=== PATIENT | female | born 1980 | race Caucasian/White ===

== ENCOUNTER 2016-07-28 21:06 | Emergency (ER) | payer MEDICAID ==
[2016-07-28] MEDS ORDERED: ONDANSETRON 4 MG/2 ML VIAL ONE (21:30)
[2016-07-28] MEDS ORDERED: KETOROLAC 30 MG/1 ML SDV ONE (21:30)
[2016-07-28] MEDS ORDERED: ONDANSETRON 4 MG/2 ML VIAL IVP ONE ×2 (21:31→22:32)
[2016-07-28] MEDS ORDERED: FAMOTIDINE 20 MG in NS 100 ML IV ONE (21:31)
[2016-07-28] MEDS ORDERED: MAALOX/LIDO/HYOSC GI COCKTAIL 55 ML BOTTLE PO ONE (21:31)
[2016-07-28] MEDS ORDERED: KETOROLAC 30 MG/1 ML SDV IVP ONE (21:31)
[2016-07-28] MEDS ORDERED: NS 1,000 ML IV ONE ×2 (21:31→23:14)
--- NOTE | 2016-07-28 21:31 | UCPHY ---
H & P Time Seen by Provider: 07/28/16 21:20 Patient Type: Established HPI/ROS: CHIEF COMPLAINT: abdominal pain HISTORY OF PRESENT ILLNESS: Patient is a 35-year-old female (possible history of Crohn's disease) who presents to the with severe and sudden onset of epigastric/right upper quadrant abdominal pain. Patient was at an AA meeting and had a slightly upset stomach. She went to the bathroom and had an episode of nonbloody diarrhea. She then became nauseated. She had sudden onset of epigastric/RUQ pain. Pain does not radiate. It is severe. She has had nausea and nonbloody emesis. She denies fevers or chills. No dysuria or frequency. Patient denies flank pain. The patient ate yogurt at 11:00 a.m.. REVIEW OF SYSTEMS: My complete review of systems is negative except as mentioned in the HPI. Past Medical/Surgical History: Includes possible Crohn's disease, depression Past surgical history: Breast augmentation Social history: The patient denies drinking or drugs. She is in a treatment program. Smoking Status: Current every day smoker Physical Exam: Vitals noted. 142/76, 118, 20, 98%, 36.6 GENERAL: my acute distress, alert. HEENT: Eyes normal to inspection, normal pharynx, no signs of dehydration. NECK: No thyromegaly, no lymphadenopathy, supple. RESPIRATORY: Clear to auscultation bilaterally, no rales, rhonchi or wheezing. CVS: regular rhythm tachycardia, no rubs, murmurs, or gallops. ABDOMEN: Soft, epigastric and right upper quadrant tenderness palpation with no rebound or guarding, nondistended, no organomegaly. BACK: Normal to inspection, no CVA tenderness. SKIN: Normal color, no rash, warm, dry. No pallor. EXTREMITIES: No pedal edema, no calf tenderness, no joint swelling. NEURO/PSYCH: Alert and oriented, normal mood and affect. Constitutional: Initial Vital Signs Temperature (C) 36.6 C 07/28/16 21:10 Heart Rate 118 H 07/28/16 21:10 Respiratory Rate 20 07/28/16 21:10 Blood Pressure 142/76 H 07/28/16 21:10 O2 Sat (%) 98 07/28/16 21:10 O2 Delivery Mode Room Air Allergies/Adverse Reactions: No Known Allergies Allergy (Verified 07/28/16 21:09) Home Medications: Medication Instructions Recorded Gabapentin 02/20/16 [place] Carbonate 02/20/16 Lexapro 07/28/16 Seroquel 07/28/16 Medical Decision Making ED Course/Re-evaluation: I discussed possible etiologies with the patient. I answered all her questions. The patient does not want narcotics at this time as she is in rehab. An IV was placed. Patient was given a L of normal saline for hydration. She is given Zofran 4 mg IV for nausea. She was given Toradol 30 mg IV for pain control. I rechecked the patient. She continued to have right upper quadrant tenderness to palpation. Her care provider from detox was in urgent care. Patient requests narcotic pain medication. Dilaudid 0.5 mg IV was given. Patient had noted elevated white count of 12. Patient's LFTs were abnormal. T bili was elevated at 1.5. Unconjugated bilirubin elevated at 1.2. Her AST and ALT are normal. Alk-phos normal. Lipase normal. Ultrasound imaging and CT with IV contrast are unavailable at our facility. I discussed the case with Dr. Jerad Ramirez from Radiology. He felt CT without contrast was not the appropriate study. I feel the patient needs further workup with imaging. Patient continues to have significant pain. The patient will be sent to the [facility] ([place], [place]) for further imaging. I discussed the case with Dr. Lott I discussed the plan with the patient and answered all her questions. Ambulance was contacted for transfer. The patient is receive narcotic medications. She is in significant discomfort. I feel she needs further monitoring during transfer and cannot go by private vehicle. Differential Diagnosis: My differential includes but is not limited to pancreatitis, cholecystitis, perforation, hiatal hernia, kidney stone, small-bowel obstruction, perforation, peptic ulcer disease, GERD - Data Points Laboratory Results: Laboratory Results 07/28/16 21:25 07/28/16 21:25 07/28/16 07/28/16 07/28/16 22:10 21:25 21:25 WBC RBC Hgb Hct MCV MCH MCHC RDW Plt Count MPV Neut % (Auto) Lymph % (Auto) [place] % (Auto) Eos % (Auto) Baso % (Auto) Nucleat RBC Rel Count Absolute Neuts (auto) Absolute Lymphs (auto) Absolute Monos (auto) Absolute Eos (auto) Absolute Basos (auto) Absolute Nucleated RBC Immature Gran % Immature Gran # Sodium 141 mEq/L mEq/L (134-144) Potassium 3.8 mEq/L mEq/L (3.5-5.2) Chloride 100 mEq/L mEq/L (97-110) Carbon Dioxide 23 mEq/l mEq/l (22-31) Anion Gap 18 mEq/L H mEq/L (8-16) BUN 11 mg/dL mg/dL (7-23) Creatinine 1.0 mg/dL mg/dL (0.6-1.0) Estimated GFR > 60 Glucose 97 mg/dL mg/dL (70-100) Calcium 10.5 mg/dL H mg/dL (8.5-10.4) Total Bilirubin 1.5 mg/dL H mg/dL (0.1-1.4) Conjugated Bilirubin 0.3 mg/dL mg/dL (0.0-0.5) Unconjugated Bilirubin 1.2 mg/dL H mg/dL (0.0-1.1) AST 31 IU/L IU/L (14-46) ALT 36 IU/L IU/L (9-52) Alkaline Phosphatase 64 IU/L IU/L (38-126) Total Protein 8.7 g/dL H g/dL (6.3-8.2) Albumin 5.0 g/dL g/dL (3.5-5.0) Lipase 237.0 IU/L IU/L (23-300) Beta HCG, Qual NEGATIVE Urine Color Pending Urine Appearance Pending Urine pH Pending Ur Specific [place] Pending Urine Protein Pending Urine Ketones Pending Urine Blood Pending Urine Nitrate Pending Urine Bilirubin Pending Urine Urobilinogen Pending Ur Leukocyte Esterase Pending Ur Culture Indicated? Pending Urine Glucose Pending 07/28/16 21:25 WBC 12.04 10^3/uL H 10^3/uL (3.80-9.50) RBC 5.56 10^6/uL H 10^6/uL (4.18-5.33) Hgb 17.3 g/dL H g/dL (12.6-16.3) Hct 49.0 % H % (38.0-47.0) MCV 88.1 fL fL (81.5-99.8) MCH 31.1 pg pg (27.9-34.1) MCHC 35.3 g/dL g/dL (32.4-36.7) RDW 13.2 % % (11.5-15.2) Plt Count 357 10^3/uL 10^3/uL (150-400) MPV 9.0 fL fL (8.7-11.7) Neut % (Auto) 79.9 % H % (39.3-74.2) Lymph % (Auto) 16.6 % % (15.0-45.0) [place] % (Auto) 2.2 % L % (4.5-13.0) Eos % (Auto) 0.5 % L % (0.6-7.6) Baso % (Auto) 0.4 % % (0.3-1.7) Nucleat RBC Rel Count 0.0 % % (0.0-0.2) Absolute Neuts (auto) 9.61 10^3/uL H 10^3/uL (1.70-6.50) Absolute Lymphs (auto) 2.00 10^3/uL 10^3/uL (1.00-3.00) Absolute Monos (auto) 0.27 10^3/uL L 10^3/uL (0.30-0.80) Absolute Eos (auto) 0.06 10^3/uL 10^3/uL (0.03-0.40) Absolute Basos (auto) 0.05 10^3/uL 10^3/uL (0.02-0.10) Absolute Nucleated RBC 0.00 10^3/uL 10^3/uL (0-0.01) Immature Gran % 0.4 % % (0.0-1.1) Immature Gran # 0.05 10^3/uL 10^3/uL (0.00-0.10) Sodium Potassium Chloride Carbon Dioxide Anion Gap BUN Creatinine Estimated GFR Glucose Calcium Total Bilirubin Conjugated Bilirubin Unconjugated Bilirubin AST ALT Alkaline Phosphatase Total Protein Albumin Lipase Beta HCG, Qual Urine Color Urine Appearance Urine pH Ur Specific [place] Urine Protein Urine Ketones Urine Blood Urine Nitrate Urine Bilirubin Urine Urobilinogen Ur Leukocyte Esterase Ur Culture Indicated? Urine Glucose Medications Given: Discontinued Medications Hydromorphone HCl (Dilaudid) 0.5 mg IVP EDNOW ONE Stop: 07/28/16 21:51 Last Admin: 07/28/16 22:02 Dose: 0.5 mg Sodium Chloride (Ns) 1,000 mls @ 0 mls/hr IV ONCE ONE PRN Reason: Wide Open Stop: 07/28/16 21:32 Last Admin: 07/28/16 21:34 Dose: 1,000 mls Famotidine 20 mg/ Sodium (Chloride) 102 mls @ 408 mls/hr IV EDNOW ONE Stop: 07/28/16 21:45 Last Admin: 07/28/16 21:40 Dose: 102 mls Ketorolac Tromethamine (Toradol) 30 mg IVP EDNOW ONE Stop: 07/28/16 21:32 Last Admin: 07/28/16 21:34 Dose: 30 mg Miscellaneous Medication (Gi Cocktail) 55 ml PO EDNOW ONE Stop: 07/28/16 21:32 Last Admin: 07/28/16 21:41 Dose: 55 ml Ondansetron HCl (Zofran) 4 mg IVP EDNOW ONE Stop: 07/28/16 21:32 Last Admin: 07/28/16 21:35 Dose: 4 mg Departure - Departure Disposition: [facility] [place] [facility] Clinical Impression: Epigastric abdominal pain Abdominal pain Qualifiers: Abdominal location: right upper quadrant Qualified Code(s): R10.11 - Right upper quadrant pain Condition: Fair Referrals: NONE *PRIMARY CARE P,. [Primary Care Provider] - As per Instructions - PQRS PQRS Measurement: My PQRS negative my PQRS negative my PQRS negative my PQRS negative 134: Depression screening and followup, PRIME MD-PHQ2 (12 years and older) Over the last 2 weeks, how often have you been bothered by any of the following problems? 1. Feeling down, depressed, or hopeless? 2. Little interest or pleasure in doing things? Patient answered no to both 1 and 2 130: Documentation of medications. Reviewed all patient medications, doses, route and frequency. 226: Do you smoke? No.
[2016-07-28 21:36] LABS: % IMMATURE GRANULYOCYTES 0.4 % (0.0-1.1); ABSOLUTE IMMATURE GRANULOCYTES 0.05 10^3/uL (0.00-0.10); ADD DIFF? NO; ADD MORPH? NO; ADD SCAN? NO; ATYPICAL LYMPHOCYTE FLAG 0 (0-99); FRAGMENT RBC FLAG 0 (0-99); HEMOGLOBIN 17.3 g/dL (12.6-16.3); LEFT SHIFT FLG 0 (0-99); LIPEMIA HEMOLYSIS FLAG 90 (0-99); MEAN CELL HEMOGLOBIN 31.1 pg (27.9-34.1); MEAN CELL HEMOGLOBIN CONCENTR. 35.3 g/dL (32.4-36.7); MEAN CELL VOLUME 88.1 fL (81.5-99.8); PLATELET CLUMPS FLAG 0 (0-99); PLATELET COUNT 357 10^3/uL (150-400); RED BLOOD CELL COUNT 5.56 10^6/uL (4.18-5.33); RED CELL DISTRIBUTION WIDTH 13.2 % (11.5-15.2)
[2016-07-28 21:46] LABS: ALANINE AMINOTRANSFERASE 36 IU/L (9-52); ALKALINE PHOSPHATASE 64 IU/L (38-126); ANION GAP 18 mEq/L (8-16); ASPARTATE AMINOTRANSFERASE 31 IU/L (14-46); BILIRUBIN,TOTAL 1.5 mg/dL (0.1-1.4); BILIRUBIN-CONJUGATED 0.3 mg/dL (0.0-0.5); BILIRUBIN-UNCONJUGATED 1.2 mg/dL (0.0-1.1); CALCIUM 10.5 mg/dL (8.5-10.4); CARBON DIOXIDE 23 mEq/l (22-31); CHLORIDE 100 mEq/L (97-110); GLOMERULAR FILTRATION RATE > 60; GLUCOSE 97 mg/dL (70-100); POTASSIUM 3.8 mEq/L (3.5-5.2); SODIUM 141 mEq/L (134-144); TOTAL PROTEIN 8.7 g/dL (6.3-8.2)
[2016-07-28] MEDS ORDERED: HYDROmorphONE/DILAUDID 1 MG/ML SYR IVP ONE (21:50)
[2016-07-28 22:15] LABS: COLOR YELLOW; LEUKOCYTE ESTERASE,URINE NEGATIVE (NEGATIVE); NITRITE,URINE NEGATIVE (NEGATIVE); PH,URINE 7.5 (5.0-7.5)
--- NOTE | 2016-07-28 23:13 | EDPHY ---
H & P Time Seen by Provider: 07/28/16 21:20 HPI/ROS: HPI CHIEF COMPLAINT: Right upper quadrant pain HISTORY OF PRESENT ILLNESS: This patient very pleasant 35-year-old female she does have significant past medical history for bipolar disorder, depression, and is recovering alcoholic, she states that earlier this evening she was going to she got acutely sick with nausea vomiting and diarrhea. She states she had to leave the AA meeting and vomited multiple times on her way home. she states during this process she develops severe 10/10 sharp stabbing right upper quadrant pain some radiation to her back. She decided to go to [facility] where she had blood work drawn however they were unable to image her as imaging including ultrasound and CT with IV contrast was unavailable. She was given multiple medications including Dilaudid, Pepcid, GI cocktail, Toradol and was referred to the emergency room for further evaluation of her abdominal pain. Of note in route by EMS he she received 100 mcg of IV fentanyl. Upon my evaluation her abdomen is soft she has very minimal tenderness. 2312: upon arrival here to the emergency room she is resting comfortably no acute distress she is not vomiting her pain is 2/10. She does have mild tenderness in the right upper quadrant there is no peritoneal signs. Patient tells me that she out of date yogurt this evening also had a hamburger. Past Medical History:Bipolar disorder, depression, recovering alcoholic Past Surgical History: Tubal ligation otherwise no abdominal surgeries Social History: Denies daily use of drugs, alcohol, tobacco products has been clean from alcohol for 6 months Family History: noncontributory ROS REVIEW OF SYSTEMS: A comprehensive 10 point review of systems is otherwise negative aside from elements mentioned in the history of present illness. Exam Constitutional triage nursing summary reviewed, vital signs reviewed, awake/ alert. Eyes normal conjunctivae and sclera, EOMI, PERRLA. HENT normal inspection, atraumatic, moist mucus membranes, no epistaxis, neck supple/ no meningismus, no raccoon eyes. Respiratory clear to auscultation bilaterally, normal breath sounds, no respiratory distress, no wheezing. Cardiovascular rate normal, regular rhythm, no murmur, no edema, distal pulses normal. Gastrointestinal soft, mild tender palpation right upper quadrant , no rebound , no guarding, normal bowel sounds, no distension, no pulsatile mass. Genitourinary no CVA tenderness. Musculoskeletal no midline vertebral tenderness, full range of motion, no calf swelling, no tenderness of extremities, no meningismus, good pulses, neurovascularly intact. Skin pink, warm, & dry, no rash, skin atraumatic. Neurologic awake, alert and oriented x 3, AAOx3, moves all 4 extremities equally, motor intact, sensory intact, CN II-XII intact, normal cerebellar, normal vision, normal speech. Psychiatric normal mood/affect. Heme/Lymph/Immune no lymphadenopathy. Differential diagnosis includes but is not limited to and in no particular order : Acute cholecystitis, biliary colic, Bowel obstruction, appendicitis, gallbladder disease, diverticulitis, colitis, enteritis, perforated viscus, gastritis, GERD, esophagitis, urinary tract infection, pyelonephritis, kidney stones Medical Decision Making: this patient will have an IV fluid bolus, 1 L normal saline is order, 6.25 mg IV Phenergan, will order imaging study at this point will start off with an ultrasound of her right upper quadrant to evaluate for acute cholecystitis. I reviewed her urgent care note and blood work. Re-evaluation: 1228: re-evaluation at this time patient continues to have vomiting pain is now more focal around her umbilicus and mid abdomen. Her ultrasound was unrevealing and showed no acute evidence of cholecystitis. I did discuss further imaging options with her and recommended a CT scan abdomen pelvis with IV contrast to further evaluate her continuing of nausea vomiting and abdominal pain. I do have concern that maybe this is early appendicitis given referred epigastric pain and now mid abdomen. She does continue to vomit at this time. I have ordered her Phenergan 12.5 IV and 0.5 mg of Dilaudid. I did re-evaluate her abdomen at this time is tender in her mid abdomen is no peritoneal signs. Ultrasound of the abdomen limited right upper quadrant. The results of the study are negative for anything acute specifically no evidence of acute cholecystitis biliary colic or stone obstruction I discussed the results of this study with the radiologist Dr. Ramirez. CT scan of the abdomen pelvis with IV contrast The results of the study are negative for acute intra-abdominal inflammatory process specifically no evidence of acute appendicitis The study was read by Dr. Hopkins. I viewed the images myself on the PACS system. 0147: Patient p. o. challenge however found she vomited briefly after small amount of water p.o. challenge. This time will hang another L of normal saline , IV Ativan for nausea vomiting and will re-evaluate after fluid bolus 0216: re-examination at this time patient is resting comfortably sleeping. Abdomen soft. No active vomiting at this time. [id number]: Re-evaluation patient was able to drink without any difficulty and tolerated crackers. She ambulated well throughout the emergency room. She is agreeable on going home. I will allow her to go home with some nausea medicine. However she does understand she develops worsening nausea vomiting continues to vomit she needs return to the emergency room. At this time re- examination her abdomen is soft nontender. She did receive multiple Liters of normal saline. Multiple rounds of antiemetic she has done well. Agreeable and discharged understands strict return precautions. Source: Patient, EMS - Personal History LMP (Females 10-55): 8-14 Days Ago Current Tetanus Diphtheria and Acellular Pertussis (TDAP): Yes - Medical/Surgical History Hx Asthma: No Hx Chronic Respiratory Disease: No Hx Diabetes: No Hx Cardiac Disease: No Hx Renal Disease: No Hx Cirrhosis: No Hx Alcoholism: No Hx HIV/AIDS: No Hx Splenectomy or Spleen Trauma: No Other PMH: med hx- Chron's?, DEPRESSION. surg-none - Social History Smoking Status: Current every day smoker Constitutional: Initial Vital Signs Temperature (C) 36.6 C 07/28/16 21:10 Heart Rate 118 H 07/28/16 21:10 Respiratory Rate 20 07/28/16 21:10 Blood Pressure 142/76 H 07/28/16 21:10 O2 Sat (%) 98 07/28/16 21:10 O2 Delivery Mode Nasal Cannula O2 (L/minute) 2 Allergies/Adverse Reactions: No Known Allergies Allergy (Verified 07/28/16 21:09) Home Medications: Medication Instructions Recorded Gabapentin 02/20/16 [place] Carbonate 02/20/16 Lexapro 07/28/16 Seroquel 07/28/16 Promethazine HCl 25 mg PO Q6-8PRN PRN #7 tablet 07/29/16 Ranitidine HCl [Zantac] 150 mg PO DAILY #14 tablet 07/29/16 Medical Decision Making - Data Points Laboratory Results: Laboratory Results 07/28/16 21:25 07/28/16 21:25 07/28/16 07/28/16 07/28/16 22:10 21:25 21:25 WBC RBC Hgb Hct MCV MCH MCHC RDW Plt Count MPV Neut % (Auto) Lymph % (Auto) [place] % (Auto) Eos % (Auto) Baso % (Auto) Nucleat RBC Rel Count Absolute Neuts (auto) Absolute Lymphs (auto) Absolute Monos (auto) Absolute Eos (auto) Absolute Basos (auto) Absolute Nucleated RBC Immature Gran % Immature Gran # Sodium 141 mEq/L mEq/L (134-144) Potassium 3.8 mEq/L mEq/L (3.5-5.2) Chloride 100 mEq/L mEq/L (97-110) Carbon Dioxide 23 mEq/l mEq/l (22-31) Anion Gap 18 mEq/L H mEq/L (8-16) BUN 11 mg/dL mg/dL (7-23) Creatinine 1.0 mg/dL mg/dL (0.6-1.0) Estimated GFR > 60 Glucose 97 mg/dL mg/dL (70-100) Calcium 10.5 mg/dL H mg/dL (8.5-10.4) Total Bilirubin 1.5 mg/dL H mg/dL (0.1-1.4) Conjugated Bilirubin 0.3 mg/dL mg/dL (0.0-0.5) Unconjugated Bilirubin 1.2 mg/dL H mg/dL (0.0-1.1) AST 31 IU/L IU/L (14-46) ALT 36 IU/L IU/L (9-52) Alkaline Phosphatase 64 IU/L IU/L (38-126) Total Protein 8.7 g/dL H g/dL (6.3-8.2) Albumin 5.0 g/dL g/dL (3.5-5.0) Lipase 237.0 IU/L IU/L (23-300) Beta HCG, Qual NEGATIVE Urine Color YELLOW Urine Appearance HAZY Urine pH 7.5 (5.0-7.5) Ur Specific [place] 1.015 (1.002-1.030) Urine Protein NEGATIVE (NEGATIVE) Urine Ketones NEGATIVE (NEGATIVE) Urine Blood NEGATIVE (NEGATIVE) Urine Nitrate NEGATIVE (NEGATIVE) Urine Bilirubin NEGATIVE (NEGATIVE) Urine Urobilinogen 0.2 EU EU (0.2-1.0) Ur Leukocyte Esterase NEGATIVE (NEGATIVE) Ur Culture Indicated? NOT INDICATED (NI) Urine Glucose NEGATIVE (NEGATIVE) 07/28/16 21:25 WBC 12.04 10^3/uL H 10^3/uL (3.80-9.50) RBC 5.56 10^6/uL H 10^6/uL (4.18-5.33) Hgb 17.3 g/dL H g/dL (12.6-16.3) Hct 49.0 % H % (38.0-47.0) MCV 88.1 fL fL (81.5-99.8) MCH 31.1 pg pg (27.9-34.1) MCHC 35.3 g/dL g/dL (32.4-36.7) RDW 13.2 % % (11.5-15.2) Plt Count 357 10^3/uL 10^3/uL (150-400) MPV 9.0 fL fL (8.7-11.7) Neut % (Auto) 79.9 % H % (39.3-74.2) Lymph % (Auto) 16.6 % % (15.0-45.0) [place] % (Auto) 2.2 % L % (4.5-13.0) Eos % (Auto) 0.5 % L % (0.6-7.6) Baso % (Auto) 0.4 % % (0.3-1.7) Nucleat RBC Rel Count 0.0 % % (0.0-0.2) Absolute Neuts (auto) 9.61 10^3/uL H 10^3/uL (1.70-6.50) Absolute Lymphs (auto) 2.00 10^3/uL 10^3/uL (1.00-3.00) Absolute Monos (auto) 0.27 10^3/uL L 10^3/uL (0.30-0.80) Absolute Eos (auto) 0.06 10^3/uL 10^3/uL (0.03-0.40) Absolute Basos (auto) 0.05 10^3/uL 10^3/uL (0.02-0.10) Absolute Nucleated RBC 0.00 10^3/uL 10^3/uL (0-0.01) Immature Gran % 0.4 % % (0.0-1.1) Immature Gran # 0.05 10^3/uL 10^3/uL (0.00-0.10) Sodium Potassium Chloride Carbon Dioxide Anion Gap BUN Creatinine Estimated GFR Glucose Calcium Total Bilirubin Conjugated Bilirubin Unconjugated Bilirubin AST ALT Alkaline Phosphatase Total Protein Albumin Lipase Beta HCG, Qual Urine Color Urine Appearance Urine pH Ur Specific [place] Urine Protein Urine Ketones Urine Blood Urine Nitrate Urine Bilirubin Urine Urobilinogen Ur Leukocyte Esterase Ur Culture Indicated? Urine Glucose Medications Given: Discontinued Medications Haloperidol Lactate (Haldol Injection) 2.5 mg IVP EDNOW ONE Stop: 07/29/16 02:35 Last Admin: 07/29/16 02:40 Dose: 2.5 mg Hydromorphone HCl (Dilaudid) 0.5 mg IVP EDNOW ONE Stop: 07/28/16 21:51 Last Admin: 07/28/16 22:02 Dose: 0.5 mg Hydromorphone HCl (Dilaudid) 0.5 mg IVP EDNOW ONE Stop: 07/29/16 00:25 Last Admin: 07/29/16 00:32 Dose: 0.5 mg Sodium Chloride (Ns) 1,000 mls @ 0 mls/hr IV ONCE ONE PRN Reason: Wide Open Stop: 07/28/16 21:32 Last Admin: 07/28/16 21:34 Dose: 1,000 mls Famotidine 20 mg/ Sodium (Chloride) 102 mls @ 408 mls/hr IV EDNOW ONE Stop: 07/28/16 21:45 Last Admin: 07/28/16 21:40 Dose: 102 mls Sodium Chloride (Ns) 1,000 mls @ 0 mls/hr IV ONCE ONE PRN Reason: Wide Open Stop: 07/28/16 23:15 Last Admin: 07/28/16 23:20 Dose: 1,000 mls Sodium Chloride (Ns) 1,000 mls @ 0 mls/hr IV ONCE ONE PRN Reason: Wide Open Stop: 07/29/16 01:47 Last Admin: 07/29/16 02:02 Dose: 1,000 mls Ketorolac Tromethamine (Toradol) 30 mg IVP EDNOW ONE Stop: 07/28/16 21:32 Last Admin: 07/28/16 21:34 Dose: 30 mg Lorazepam (Ativan Injection) 1 mg IVP EDNOW ONE Stop: 02/22/17 01:47 Last Admin: 07/29/16 02:01 Dose: 1 mg Miscellaneous Medication (Gi Cocktail) 55 ml PO EDNOW ONE Stop: 07/28/16 21:32 Last Admin: 07/28/16 21:41 Dose: 55 ml Ondansetron HCl (Zofran) 4 mg IVP EDNOW ONE Stop: 07/28/16 21:32 Last Admin: 07/28/16 21:35 Dose: 4 mg Ondansetron HCl (Zofran) 4 mg IVP EDNOW ONE Stop: 07/28/16 22:33 Last Admin: 07/28/16 22:34 Dose: 4 mg Promethazine HCl (Phenergan) 6.25 mg IVP ONCE ONE Stop: 07/28/16 23:15 Last Admin: 07/28/16 23:20 Dose: 6.25 mg Promethazine HCl (Phenergan) 12.5 mg IVP ONCE ONE Stop: 07/29/16 00:25 Last Admin: 07/29/16 00:32 Dose: 12.5 mg Departure - Departure Disposition: Home, Routine, Self-Care Clinical Impression: Epigastric abdominal pain Abdominal pain Qualifiers: Abdominal location: upper abdomen, unspecified Qualified Code(s): R10.10 - Upper abdominal pain, unspecified Nausea and vomiting Qualifiers: Vomiting type: unspecified Vomiting Intractability: intractable Qualified Code( s): R11.2 - Nausea with vomiting, unspecified Condition: Fair Instructions: Acute Abdominal Pain (ED), Acute Nausea and Vomiting (ED) Additional Instructions: 1. Try to stay well-hydrated drink a very bland diet, no spicy fatty greasy foods. 2. take Zofran if you feeling nauseous 3. return to the emergency room if develops any worsening symptoms includes worsening abdominal pain, fever or you continue to vomit. Referrals: NONE *PRIMARY CARE P,. [Unknown] - As per Instructions Prescriptions: Promethazine HCl 25 mg PO Q6-8PRN PRN #7 tablet PRN Reason: Nausea/Vomiting, Use 1st Ranitidine HCl [Zantac] 150 mg PO DAILY #14 tablet
[2016-07-28] MEDS ORDERED: PROMETHAZINE HCL 25 MG/ML INJ ONE (23:14)
[2016-07-28] MEDS ORDERED: PROMETHAZINE HCL 25 MG/ML INJ IVP ONE (23:14)
[2016-07-29] MEDS ORDERED: IOPAMIDOL (ISOVUE-300) 100 ML BTL IV ONE (00:22)
[2016-07-29] MEDS ORDERED: HYDROmorphONE/DILAUDID 1 MG/ML SYR IVP ONE (00:24)
[2016-07-29] MEDS ORDERED: PROMETHAZINE HCL 25 MG/ML INJ IVP ONE (00:24)
[2016-07-29] MEDS ORDERED: HYDROmorphONE/DILAUDID 1 MG/ML SYR ONE (00:25)
[2016-07-29 00:44] VITALS: TEMP 97.5
[2016-07-29] MEDS ORDERED: LORazepam 2 MG/ML INJ IVP ONE (01:46)
[2016-07-29] MEDS ORDERED: NS 1,000 ML IV ONE (01:46)
[2016-07-29 02:06] VITALS: RESP 16
[2016-07-29] MEDS ORDERED: HALOPERIDOL LACT 5 MG/ML INJ IVP ONE (02:34)
[2016-07-29] MEDS ORDERED: PROMETHAZINE 25 MG PREPACK #4 BTL TAKEHOME ONE (04:48)
[2016-07-29 05:24] VITALS: BP 98/56; PULSE 95; O2SAT 96
== END 2016-07-29 04:55 | disposition home or self-care (01) ==
LOC: CED 21:06
DX: R10.13 Epigastric pain (principal); R10.10 Upper abdominal pain, unspecified; R11.2 Nausea with vomiting, unspecified; F17.200 Nicotine dependence, unspecified, uncomplicated
CPT/HCPCS: 80048-PO; 80076-PO; 81003-PO; 83690-PO; 84703-PO; 85025-PO; 96361-PO; 96365; 96365-PO; 96375-PO; G0463-PO; J1170; J1885; J2405; J2550; Q9967

== ENCOUNTER 2016-07-31 23:50 | Emergency (ER) | payer MEDICAID ==
[2016-08-01] MEDS ORDERED: ONDANSETRON 4 MG/2 ML VIAL ONE (00:05)
[2016-08-01] MEDS ORDERED: ONDANSETRON 4 MG/2 ML VIAL IVP ONE ×2 (00:11→01:08)
[2016-08-01] MEDS ORDERED: NS 1,000 ML IV ONE (00:11)
--- NOTE | 2016-08-01 00:12 | EDPHY ---
H & P Stated Complaint: ABD Pain, NV Time Seen by Provider: 08/01/16 00:01 HPI/ROS: Chief complaint: Abdominal pain, nausea and vomiting HPI: 35-year-old female who had the sudden onset of nausea and vomiting about 2 hours ago. This was followed by the onset of upper abdominal pain. Patient was seen here 2 days ago with a similar episode. At that time she had extensive workup including laboratory evaluation, ultrasound of her abdomen and a CT scan of her abdomen. All of which was unremarkable. Patient states she has been pain-free without the last 2 days. She states she ate pork and some broccoli knee this evening. No other it exposures. She denies smoking, alcohol ingestion, or any other drug use. She does have a history of bipolar disorder and is taking lithium. No fevers or chills. No chest pain or shortness of breath. No diarrhea or constipation. No blood in her vomit. ROS: 10 point Review of Systems is negative except as noted in the HPI. Past medical history: Bipolar disorder and depression Allergies: No known drug allergies Social history: Is a recovering alcoholic, is nonsmoking, no drugs, no alcohol Physical exam: Gen: Awake, Alert, No Distress HEENT: Nose: no rhinorrhea Eyes: PERRLA, EOMI Mouth: Moist mucosa Neck: Supple, no JVD Chest: nontender, lungs clear to auscultation Heart: S1, S2 normal, no murmur Abd: Soft, no tenderness, no guarding Back: no CVA tenderness, no midline tenderness Ext: no edema, non-tender Skin: no rash Neuro: CN II-XII intact, Sensation grossly intact, Strength 5/5 in bilateral upper and lower extremities - Personal History LMP (Females 10-55): 15-21 Days Ago Current Tetanus Diphtheria and Acellular Pertussis (TDAP): Yes Tetanus Vaccine Date: within 10 years - Medical/Surgical History Hx Asthma: No Hx Chronic Respiratory Disease: No Hx Diabetes: No Hx Cardiac Disease: No Hx Renal Disease: No Hx Cirrhosis: No Hx Alcoholism: No Hx HIV/AIDS: No Hx Splenectomy or Spleen Trauma: No Other PMH: med hx- Chron's?, DEPRESSION. surg-none - Social History Smoking Status: Former smoker Constitutional: Initial Vital Signs Temperature (C) 36.6 C 07/31/16 23:53 Heart Rate 83 07/31/16 23:53 Respiratory Rate 22 H 07/31/16 23:53 Blood Pressure 151/110 H 07/31/16 23:53 O2 Sat (%) 97 07/31/16 23:53 O2 Delivery Mode Room Air Allergies/Adverse Reactions: No Known Allergies Allergy (Verified 07/28/16 21:09) Home Medications: Medication Instructions Recorded Gabapentin 02/20/16 [place] Carbonate 02/20/16 Lexapro 07/28/16 Seroquel 07/28/16 Promethazine HCl 25 mg PO Q6-8PRN PRN #7 tablet 07/29/16 Ranitidine HCl [Zantac] 150 mg PO DAILY #14 tablet 07/29/16 Medical Decision Making ED Course/Re-evaluation: Patient is in improved. Laboratory evaluations are unremarkable. She is asking to go home at this time. Plan will be to discharge with follow-up with primary care physician on Wednesday. She should return to the emergency department sooner for any concerns. - Data Points Laboratory Results: Laboratory Results 08/01/16 00:10 08/01/16 00:10 08/01/16 08/01/16 08/01/16 00:38 00:10 00:10 WBC RBC Hgb Hct MCV MCH MCHC RDW Plt Count MPV Neut % (Auto) Lymph % (Auto) [place] % (Auto) Eos % (Auto) Baso % (Auto) Nucleat RBC Rel Count Absolute Neuts (auto) Absolute Lymphs (auto) Absolute Monos (auto) Absolute Eos (auto) Absolute Basos (auto) Absolute Nucleated RBC Immature Gran % Immature Gran # Sodium 138 mEq/L mEq/L (134-144) Potassium 4.2 mEq/L mEq/L (3.5-5.2) Chloride 105 mEq/L mEq/L (97-110) Carbon Dioxide 23 mEq/l mEq/l (22-31) Anion Gap 10 mEq/L mEq/L (8-16) BUN 9 mg/dL mg/dL (7-23) Creatinine 0.9 mg/dL mg/dL (0.6-1.0) Estimated GFR > 60 Glucose 83 mg/dL mg/dL (70-100) Calcium 9.4 mg/dL mg/dL (8.5-10.4) Total Bilirubin 1.0 mg/dL mg/dL (0.1-1.4) Conjugated Bilirubin 0.3 mg/dL mg/dL (0.0-0.5) Unconjugated Bilirubin 0.7 mg/dL mg/dL (0.0-1.1) AST 28 IU/L IU/L (14-46) ALT 33 IU/L IU/L (9-52) Alkaline Phosphatase 52 IU/L IU/L (38-126) Total Protein 7.6 g/dL g/dL (6.3-8.2) Albumin 4.5 g/dL g/dL (3.5-5.0) Lipase 204.0 IU/L IU/L (23-300) Beta HCG, Qual NEGATIVE Urine Color PALE YELLOW Urine Appearance CLEAR Urine pH 7.0 (5.0-7.5) Ur Specific [place] 1.004 (1.002-1.030) Urine Protein NEGATIVE (NEGATIVE) Urine Ketones NEGATIVE (NEGATIVE) Urine Blood 2+ H (NEGATIVE) Urine Nitrate NEGATIVE (NEGATIVE) Urine Bilirubin NEGATIVE (NEGATIVE) Urine Urobilinogen NEGATIVE EU EU (0.2-1.0) Ur Leukocyte Esterase NEGATIVE (NEGATIVE) Urine RBC 1-3 /hpf /hpf (0-3) Urine WBC 1-3 /hpf /hpf (0-3) Ur Epithelial Cells TRACE /lpf /lpf (NONE-1+) Urine Bacteria 1+ /hpf H /hpf (NONE SEEN) Urine Glucose NEGATIVE (NEGATIVE) [place] 0.3 mEq/L L mEq/L (0.6-1.2) 08/01/16 00:10 WBC 8.28 10^3/uL 10^3/uL (3.80-9.50) RBC 4.47 10^6/uL 10^6/uL (4.18-5.33) Hgb 14.2 g/dL g/dL (12.6-16.3) Hct 40.0 % % (38.0-47.0) MCV 89.5 fL fL (81.5-99.8) MCH 31.8 pg pg (27.9-34.1) MCHC 35.5 g/dL g/dL (32.4-36.7) RDW 13.2 % % (11.5-15.2) Plt Count 280 10^3/uL 10^3/uL (150-400) MPV 9.1 fL fL (8.7-11.7) Neut % (Auto) 59.5 % % (39.3-74.2) Lymph % (Auto) 33.0 % % (15.0-45.0) [place] % (Auto) 5.8 % % (4.5-13.0) Eos % (Auto) 1.1 % % (0.6-7.6) Baso % (Auto) 0.4 % % (0.3-1.7) Nucleat RBC Rel Count 0.0 % % (0.0-0.2) Absolute Neuts (auto) 4.93 10^3/uL 10^3/uL (1.70-6.50) Absolute Lymphs (auto) 2.73 10^3/uL 10^3/uL (1.00-3.00) Absolute Monos (auto) 0.48 10^3/uL 10^3/uL (0.30-0.80) Absolute Eos (auto) 0.09 10^3/uL 10^3/uL (0.03-0.40) Absolute Basos (auto) 0.03 10^3/uL 10^3/uL (0.02-0.10) Absolute Nucleated RBC 0.00 10^3/uL 10^3/uL (0-0.01) Immature Gran % 0.2 % % (0.0-1.1) Immature Gran # 0.02 10^3/uL 10^3/uL (0.00-0.10) Sodium Potassium Chloride Carbon Dioxide Anion Gap BUN Creatinine Estimated GFR Glucose Calcium Total Bilirubin Conjugated Bilirubin Unconjugated Bilirubin AST ALT Alkaline Phosphatase Total Protein Albumin Lipase Beta HCG, Qual Urine Color Urine Appearance Urine pH Ur Specific [place] Urine Protein Urine Ketones Urine Blood Urine Nitrate Urine Bilirubin Urine Urobilinogen Ur Leukocyte Esterase Urine RBC Urine WBC Ur Epithelial Cells Urine Bacteria Urine Glucose [place] Medications Given: Discontinued Medications Haloperidol Lactate (Haldol Injection) 2.5 mg IVP EDNOW ONE Stop: 08/01/16 01:50 Last Admin: 08/01/16 01:49 Dose: 2.5 mg Sodium Chloride (Ns) 1,000 mls @ 0 mls/hr IV ONCE ONE PRN Reason: Wide Open Stop: 08/01/16 00:12 Last Admin: 08/01/16 00:20 Dose: 1,000 mls Morphine Sulfate (Morphine) 4 mg IVP ONCE ONE Stop: 08/01/16 00:12 Last Admin: 08/01/16 00:25 Dose: 4 mg Ondansetron HCl (Zofran) 4 mg IVP EDNOW ONE Stop: 08/01/16 00:12 Last Admin: 08/01/16 00:21 Dose: 4 mg Ondansetron HCl (Zofran) 4 mg IVP EDNOW ONE Stop: 08/01/16 01:09 Last Admin: 08/01/16 01:15 Dose: 4 mg Departure - Departure Disposition: Home, Routine, Self-Care Clinical Impression: Abdominal pain Condition: Good Instructions: Abdominal Pain (ED), Acute Nausea and Vomiting (ED) Additional Instructions: Follow up with primary care doctor on Wednesday for re-evaluation. Return to the emergency depart for increasing pain, nausea vomiting, fevers, chills, or any other concerns. Referrals: JEISON DYSON [Other] - As per Instructions
[2016-08-01 00:21] LABS: % IMMATURE GRANULYOCYTES 0.2 % (0.0-1.1); ABSOLUTE IMMATURE GRANULOCYTES 0.02 10^3/uL (0.00-0.10); ADD DIFF? NO; ADD MORPH? NO; ADD SCAN? NO; ATYPICAL LYMPHOCYTE FLAG 20 (0-99); FRAGMENT RBC FLAG 0 (0-99); HEMOGLOBIN 14.2 g/dL (12.6-16.3); LEFT SHIFT FLG 0 (0-99); LIPEMIA HEMOLYSIS FLAG 90 (0-99); MEAN CELL HEMOGLOBIN 31.8 pg (27.9-34.1); MEAN CELL HEMOGLOBIN CONCENTR. 35.5 g/dL (32.4-36.7); MEAN CELL VOLUME 89.5 fL (81.5-99.8); MEAN PLATELET VOLUME 9.1 fL (8.7-11.7); PLATELET CLUMPS FLAG 0 (0-99); PLATELET COUNT 280 10^3/uL (150-400); RED BLOOD CELL COUNT 4.47 10^6/uL (4.18-5.33); RED CELL DISTRIBUTION WIDTH 13.2 % (11.5-15.2)
[2016-08-01 00:50] LABS: ALANINE AMINOTRANSFERASE 33 IU/L (9-52); ALBUMIN 4.5 g/dL (3.5-5.0); ALKALINE PHOSPHATASE 52 IU/L (38-126); ANION GAP 10 mEq/L (8-16); ASPARTATE AMINOTRANSFERASE 28 IU/L (14-46); BILIRUBIN-CONJUGATED 0.3 mg/dL (0.0-0.5); BILIRUBIN-UNCONJUGATED 0.7 mg/dL (0.0-1.1); CALCIUM 9.4 mg/dL (8.5-10.4); CARBON DIOXIDE 23 mEq/l (22-31); CHLORIDE 105 mEq/L (97-110); CREATININE 0.9 mg/dL (0.6-1.0); GLOMERULAR FILTRATION RATE > 60; GLUCOSE 83 mg/dL (70-100); LITHIUM 0.3 mEq/L (0.6-1.2); POTASSIUM 4.2 mEq/L (3.5-5.2); SODIUM 138 mEq/L (134-144); TOTAL PROTEIN 7.6 g/dL (6.3-8.2)
[2016-08-01 00:53] LABS: COLOR PALE YELLOW; LEUKOCYTE ESTERASE,URINE NEGATIVE (NEGATIVE); NITRITE,URINE NEGATIVE (NEGATIVE)
[2016-08-01 00:56] LABS: BACTERIA 1+ /hpf (NONE SEEN)
[2016-08-01] MEDS ORDERED: HALOPERIDOL LACT 5 MG/ML INJ ONE (01:43)
[2016-08-01] MEDS ORDERED: HALOPERIDOL LACT 5 MG/ML INJ IVP ONE (01:49)
[2016-08-01] MEDS ORDERED: ONDANSETRON 4MG PREPACK#2 BTL TAKEHOME ONE (02:13)
[2016-08-01 02:23] VITALS: BP 100/52; PULSE 61; RESP 16; TEMP 98.1; O2SAT 95
== END 2016-08-01 02:22 | disposition home or self-care (01) ==
DX: R10.9 Unspecified abdominal pain (principal); Z87.891 Personal history of nicotine dependence
CPT/HCPCS: 96374; J2405